=== PATIENT | female | born 1955 | race Caucasian/White ===

== ENCOUNTER 2020-10-19 10:18 | Emergency (ER) | payer BC ==
[~2020-10-19] VITALS: Ht 167.6 cm; Wt 73.6 kg
[2020-10-19] MEDS ORDERED: SODIUM CHLORIDE FLUSH 10ML SYR IVF ONE (11:30)
[2020-10-19] MEDS ORDERED: SODIUM CHLORIDE 0.9% 1,000ML IVBOLUS ONE (11:30)
[2020-10-19 11:33] LABS: BASOPHILS % (AUTO) 1 % (0-1); EOSINOPHILS % (AUTO) 1 % (1-7); LYMPHOCYTES % (AUTO) 26 % (22-44); MEAN CORPUSCULAR HEMOGLOBIN 22.4 pg (27.0-34.8); MEAN CORPUSCULAR HGB CONC 31.6 g/dL (32.4-35.8); MEAN PLATELET VOLUME 7.6 fL (7.4-10.4); MONOCYTES % (AUTO) 9 % (2-9); NEUTROPHILS % (AUTO) 65 % (42-75); PLATELET COUNT 311 x10^3/uL (130-400); RED BLOOD COUNT 4.78 x10^6/uL (3.82-5.3); RED CELL DISTRIBUTION WIDTH 15.3 % (9.6-15.2)
[2020-10-19 11:35] LABS: MD NO
[2020-10-19 11:45] LABS: ANION GAP 6 mmol/L (5-15); CALCIUM 8.7 mg/dL (8.5-10.1); CHLORIDE 106 mmol/L (98-107)
[2020-10-19 11:53] LABS: ALANINE AMINOTRANSFERASE 20 U/L (12-78); ALKALINE PHOSPHATASE 60 U/L (45-117); BILIRUBIN,TOTAL 0.2 mg/dL (0.2-1.0); CREATININE 0.67 mg/dL (0.55-1.02); TOTAL PROTEIN 6.5 g/dL (6.4-8.2)
[2020-10-19 12:18] VITALS: BP 152/72
== END 2020-10-19 13:28 | disposition home or self-care (01) ==
LOC: ED 13:04
DX: J06.9 Acute upper respiratory infection, unspecified (principal); J02.9 Acute pharyngitis, unspecified; R00.0 Tachycardia, unspecified; E11.9 Type 2 diabetes mellitus without complications; Z90.49 Acquired absence of other specified parts of digestive tract; Z90.710 Acquired absence of both cervix and uterus
CPT/HCPCS: 36415; 71045; 80053; 82728; 83615; 84145; 85025; 85379; 86140; 93005; 96360; 99285; J7030

== ENCOUNTER 2020-10-23 14:29 | Emergency (ER) | payer BC ==
[~2020-10-23] VITALS: Ht 167.6 cm; Wt 72.0 kg
--- NOTE | 2020-10-23 15:39 | NUR ---
[employer] CONSULT[employer]: PT TO ROOM FROM LOBBY
--- NOTE | 2020-10-23 15:44 | NUR ---
Walked to room becomes very tired and sob with any exertion. Pt was here few days ago covid pos, was offerred bambam infusion, declined it. Here now wanting it; says feels worse. Worsening of fatigue, weakness generalized and sob. Placed on pulse ox, b/p. Speaks full sentences. Waiting for md evaluation, AIDET provided.
[2020-10-23 15:45] LABS: BASOPHILS % (AUTO) 1 % (0-1); EOSINOPHILS % (AUTO) 2 % (1-7); LYMPHOCYTES % (AUTO) 22 % (22-44); MEAN CORPUSCULAR HEMOGLOBIN 21.9 pg (27.0-34.8); MEAN CORPUSCULAR HGB CONC 31.5 g/dL (32.4-35.8); MEAN PLATELET VOLUME 7.7 fL (7.4-10.4); MONOCYTES % (AUTO) 9 % (2-9); NEUTROPHILS % (AUTO) 67 % (42-75); PLATELET COUNT 416 x10^3/uL (130-400); RED BLOOD COUNT 5.32 x10^6/uL (3.82-5.3); RED CELL DISTRIBUTION WIDTH 15.4 % (9.6-15.2)
[2020-10-23 15:48] LABS: MD NO
[2020-10-23 15:55] LABS: ANION GAP 5 mmol/L (5-15); CALCIUM 8.9 mg/dL (8.5-10.1); CHLORIDE 105 mmol/L (98-107)
[2020-10-23 15:58] LABS: ALANINE AMINOTRANSFERASE 15 U/L (12-78); ALKALINE PHOSPHATASE 61 U/L (45-117); BILIRUBIN,TOTAL 0.3 mg/dL (0.2-1.0); CREATININE 0.78 mg/dL (0.55-1.02); TOTAL PROTEIN 6.7 g/dL (6.4-8.2)
[2020-10-23] MEDS ORDERED: FILTER 0.22 MICRON IV ONE (17:00)
[2020-10-23] MEDS ORDERED: BAMLANIVIMAB 700 MG in SODIUM CHLORIDE 0.9% 250 ML IVPB ONE (17:00)
[2020-10-23 17:56] VITALS: BP 132/70
== END 2020-10-23 19:52 | disposition home or self-care (01) ==
LOC: ED 16:06
DX: U07.1 COVID-19 (principal); R06.00 Dyspnea, unspecified; R50.9 Fever, unspecified; R05 Cough; M79.10 Myalgia, unspecified site; E11.9 Type 2 diabetes mellitus without complications
CPT/HCPCS: 36415; 71045; 80053; 85025; 99284; J7050; M0239; Q0239

== ENCOUNTER 2020-11-01 12:22 | Emergency (ER) | payer BC ==
[~2020-11-01] VITALS: Ht 167.6 cm; Wt 71.8 kg
--- NOTE | 2020-11-01 12:48 | NUR ---
PT IS TRAVEL L[facility]RAINE [facility], RECENTLY DX WITH LORRAINE 10/21/2020. PT REPORTS COUGH, CURRENTLY VISITING ED D/T "BUBBLING" SOUND IN EARS. PT REPORTS [place] DRAINAGE FROM BILATERAL EARS. "I JUST DON'T WANT THE DRAINING TO GO DOWN INTO MY LUNGS."
[2020-11-01] MEDS ORDERED: SODIUM CHLORIDE 0.9% 1,000ML IVBOLUS ONE (13:00)
[2020-11-01 13:25] LABS: BASOPHILS % (AUTO) 0 % (0-1); EOSINOPHILS % (AUTO) 2 % (1-7); LYMPHOCYTES % (AUTO) 26 % (22-44); MEAN CORPUSCULAR HEMOGLOBIN 22.1 pg (27.0-34.8); MEAN CORPUSCULAR HGB CONC 32.1 g/dL (32.4-35.8); MEAN PLATELET VOLUME 8.5 fL (7.4-10.4); MONOCYTES % (AUTO) 9 % (2-9); NEUTROPHILS % (AUTO) 63 % (42-75); PLATELET COUNT 465 x10^3/uL (130-400); RED BLOOD COUNT 5.33 x10^6/uL (3.82-5.3)
[2020-11-01 13:46] LABS: ALBUMIN 3.3 g/dL (3.4-5.0); ANION GAP 10 mmol/L (5-15); CALCIUM 9.5 mg/dL (8.5-10.1); CHLORIDE 106 mmol/L (98-107)
[2020-11-01 13:49] LABS: ALANINE AMINOTRANSFERASE 13 U/L (12-78); ALKALINE PHOSPHATASE 77 U/L (45-117); BILIRUBIN,TOTAL 0.2 mg/dL (0.2-1.0); CREATININE 0.89 mg/dL (0.55-1.02); TOTAL PROTEIN 7.1 g/dL (6.4-8.2)
[2020-11-01 13:53] LABS: MD NO
--- NOTE | 2020-11-01 13:54 | NUR ---
IV START, IVF INFUSING PER EMAR. PT GIVEN CALL LIGHT. NAD NOTED AT THIS TIME. PT AWARE OF PLAN OF CARE. SIDE RAIL UP.
--- NOTE | 2020-11-01 14:32 | NUR ---
PT AMBULATES WELL TO BATHROOM INDEPENDENTLY AND BACK IN BED. NAD NOTED AT THIS TIME. ERMD AWARE OF UPDATED VITALS AND COMPLETION OF IV FLUIDS.
[2020-11-01 15:11] VITALS: BP 141/73
== END 2020-11-01 15:17 | disposition home or self-care (01) ==
LOC: ED 15:00
DX: U07.1 COVID-19 (principal); H65.23 Chronic serous otitis media, bilateral; B34.9 Viral infection, unspecified; E86.0 Dehydration; E11.9 Type 2 diabetes mellitus without complications; Z90.49 Acquired absence of other specified parts of digestive tract; Z90.710 Acquired absence of both cervix and uterus
CPT/HCPCS: 36415; 71045; 80053; 85025; 87040; 96360; 99284; J7030